=== PATIENT | male | born 1960 | race Caucasian/White ===

== ENCOUNTER 2018-02-06 08:50 | Emergency (ER) | payer BC ==
[2018-02-06] MEDS ORDERED: Ondansetron ODT TAB* 4 MG PO ONE (10:14)
[2018-02-06] MEDS ORDERED: Tetan/Diph/Pertus SYR(Tdap)* 0.5 ML SYR(BOOSTRIX) use SYR IM ONE (10:14)
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
--- NOTE | 2018-02-06 11:12 | RAD ---
HISTORY: Fall, 4th/5th MT pain COMPARISONS: None VIEWS: 4, Frontal, lateral, and oblique views of the right hand FINDINGS: BONE DENSITY: Normal. BONES: There is no displaced fracture. JOINTS: There is mild osteoarthritis of interphalangeal joints and first MCP joint. ALIGNMENT: There is no dislocation. SOFT TISSUES: Unremarkable. OTHER FINDINGS: None. IMPRESSION: NO ACUTE OSSEOUS INJURY. IF SYMPTOMS PERSIST, RECOMMEND REPEAT IMAGING.
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
[2018-02-06 12:32] VITALS: BP 164/97
== END 2018-02-06 12:34 | disposition home or self-care (01) ==
LOC: ED 08:50
DX: S06.0X0A Concussion without loss of consciousness, initial encounter (principal); M48.54XA Collapsed vertebra, not elsewhere classified, thoracic region, initial encounter for fracture; S60.221A Contusion of right hand, initial encounter; S00.83XA Contusion of other part of head, initial encounter; Y04.2XXA Assault by strike against or bumped into by another person, initial encounter; Y92.29 Other specified public building as the place of occurrence of the external cause; F17.210 Nicotine dependence, cigarettes, uncomplicated; Z23 Encounter for immunization
CPT/HCPCS: 70450; 70486; 72070; 90471; 90715; 99282; A9270-GY

== ENCOUNTER 2024-04-19 11:41 | Observation (INO) ==
[~2024-04-19 11:41] MED LIST: Naloxone 0.4 mg VIAL 0.4 mg/ml 1 ml VIAL IV PRN; Ondansetron 4 mg VIAL 2 MG/ML 2 ml VIAL IV PRN
[2024-04-19] MEDS ORDERED: ceFAZolin 2 GM PREMIX 2 GM/50 ML BAG ONE (12:34)
[2024-04-19] MEDS ORDERED: Tranexamic Acid 1 GM/100ML BAG 2,000 MG/200 ML BAG IV ONE (12:37)
[2024-04-19 12:38] LABS: Rapid COVID-19 Molecular Undetected (Undetected)
[2024-04-19] MEDS ORDERED: Rocuronium 50 mg VIAL 10 mg/ml 5 ml VIAL (50 mg) ONE (13:17)
[2024-04-19] MEDS ORDERED: fentaNYL 250 mcg/5 ml 50 MCG/ML 5 ml VIAL (250 MCG) ONE (13:17)
[2024-04-19] MEDS ORDERED: Propofol 10 MG/ML 20 ML BTL ONE (13:17)
[2024-04-19] MEDS ORDERED: Ondansetron 4 mg VIAL 2 MG/ML 2 ml VIAL ONE (13:17)
[2024-04-19] MEDS ORDERED: Midazolam 2 mg/2 ml VIAL 1 mg/ml 2 ml VIAL (2 mg) ONE (13:17)
[2024-04-19] MEDS ORDERED: Dexamethasone IV 4 MG/ML VIAL 1 ml VIAL ONE (13:17)
[2024-04-19] MEDS ORDERED: Lidocaine 2% PF 5 ML VIAL ONE (13:17)
[2024-04-19] MEDS ORDERED: ROPIVACAINE 5 MG/ML 30 ML BTL (0.5%) ONE ×2 (14:03→14:47)
[2024-04-19] MEDS ORDERED: Acetaminophen IV 1 GM/100ML 1,000 MG/100 ML BAG IV ONE (15:10)
[2024-04-19] MEDS ORDERED: Magnesium Hydroxide LIQ 30 ML UDC PO PRN (15:27)
[2024-04-19] MEDS ORDERED: Lactulose 30 ml UDC PO PRN (15:27)
[2024-04-19] MEDS ORDERED: Morphine 2 MG/ML SYRINGE IV PRN (15:27)
[2024-04-19] MEDS ORDERED: Ondansetron ODT 4 mg TAB 4 MG TAB PO PRN (15:27)
[2024-04-19] MEDS ORDERED: Ondansetron 4 mg VIAL 2 MG/ML 2 ml VIAL IV PRN (15:27)
[2024-04-19] MEDS ORDERED: Calcium Carb (TUMS) 500 mg CHEW TAB PO PRN (15:27)
[2024-04-19] MEDS ORDERED: HYDROmorphone 0.5 MG/0.5 ML SYRINGE ONE ×2 (15:31→16:21)
[2024-04-19] MEDS: fentaNYL 100 mcg/2 ml 50 MCG/ML VIAL IV PRN (17:23)
[2024-04-19] MEDS ORDERED: HYDROmorphone 1 MG/1 ML SYRINGE ONE (18:03)
[2024-04-19] MEDS ORDERED: fentaNYL 100 mcg/2 ml 50 MCG/ML VIAL ONE (18:04)
[2024-04-19] MEDS ORDERED: Dextrose 50% Syringe 50 ml 25 GM/50 ML SYRINGE IV PUSH PRN (19:15)
[2024-04-19] MEDS: Lactated Ringers 1000 ml BAG 1,000 ML IV SCH (20:33)
[2024-04-19] MEDS: Magnesium Hydroxide LIQ 30 ML UDC PO SCH (20:33)
[2024-04-20] MEDS: ceFAZolin 2 GM PREMIX 2 GM/50 ML BAG IV SCH (01:04)
[2024-04-20 07:31] LABS: Hematocrit 36.2 % (38-53); Hemoglobin 11.9 g/dL (13.2-16.3); Mean Platelet Volume 7.4 fL (7.5-11.2); Platelet Count 211 10^3/uL (150-450)
[2024-04-20 07:54] LABS: Calcium 8.5 mg/dL (8.6-10.3); Creatinine, Serum 0.75 mg/dL (0.67-1.17); Potassium 4.6 mmol/L (3.5-5.0); eGFR CKD-EPI 102.7 (>60)
[2024-04-20 08:13] VITALS: BP 156/69
[2024-04-20] MEDS: Buffered Lidocaine 1% SYRIN 1 ml INTRADERM ONE (08:23)
[2024-04-20] MEDS: Lactated Ringers 1000 ml BAG 1,000 ML IV SCH (08:23)
[2024-04-20] MEDS: Aspirin EC 81 mg TAB.EC (enteric coated) PO SCH (08:37)
[2024-04-20] MEDS: Vitamin THERAPEUTIC TAB PO SCH (08:37)
== END 2024-04-20 13:15 | disposition home or self-care (01) ==
LOC: OR 11:41 → SSU 11:41
PROVIDERS: ADMIT Orthopaedic Surgery Adult Reconstructive Orthopaedic Surgery; ATTEND Orthopaedic Surgery Adult Reconstructive Orthopaedic Surgery